=== PATIENT | female | born 1995 | race Hispanic/Latino ===

== ENCOUNTER 2024-11-21 20:28 | Emergency (ER) | payer SELFPAY ==
[~2024-11-21] VITALS: Ht 162.6 cm; Wt 64.4 kg
[~2024-11-21 20:28] MED LIST: PROVENTIL HFA6.7 GM INH
[2024-11-21] MEDS: ALBUTEROL/IPRATROPIUM 3 ML NEB NEB ONE (20:45)
[2024-11-21] MEDS ORDERED: DEXAMETHASONE 10MG/ML PF INJ IM ONE (20:45)
[2024-11-21] MEDS: KETOROLAC TROMETHAMINE 30 MG/ML VIAL IM STA (20:50)
[2024-11-21] MEDS: DEXAMETHASONE SOD PHOS INJ 4 MG/ML SDV IM ONE (20:50)
[2024-11-21] MEDS ORDERED: VENTOLIN HFA18 GM INH (21:34)
[2024-11-21] MEDS ORDERED: MEDROL8 MG PO (21:35)
[2024-11-21] MEDS ORDERED: CORICIDIN HBP1 EAC1 PO (21:37)
[2024-11-21] MEDS ORDERED: AMOXICILLIN500 MG PO (21:41)
[2024-11-21 21:49] VITALS: PULSE 87; RESP 19; TEMP 97.9
[2024-11-21 21:51] VITALS: BP 128/78; PULSE 87; RESP 19; TEMP 97.9; O2SAT 100
== END 2024-11-21 21:54 | disposition home or self-care (01) ==
LOC: FSED 20:32
DX: R06.2 Wheezing (principal); B34.9 Viral infection, unspecified; R05.9 Cough, unspecified; R09.81 Nasal congestion; Z11.52 Encounter for screening for COVID-19
CPT/HCPCS: 0223U; 87400; 96372; 99283; J1100; J1885

== ENCOUNTER 2025-01-11 19:19 | Emergency (ER) | payer SELFPAY ==
[~2025-01-11] VITALS: Ht 162.6 cm; Wt 68.0 kg
[~2025-01-11 19:19] MED LIST changes: +AMOXICILLIN500 MG PO; +CORICIDIN HBP1 EAC1 PO; +MEDROL8 MG PO; +VENTOLIN HFA18 GM INH
[2025-01-11 19:31] VITALS: PULSE 84; RESP 16; TEMP 98.5
[2025-01-11] MEDS: SODIUM CHLORIDE 0.9% 1000ML 1,000 ML IV ONE (20:17)
[2025-01-11] MEDS ORDERED: MACROBID 100 M100 MG PO (20:51)
[2025-01-11 20:59] VITALS: BP 136/82; RESP 18; O2SAT 99
== END 2025-01-11 20:58 | disposition home or self-care (01) ==
LOC: FSED 19:27
DX: R20.2 Paresthesia of skin (principal); R11.10 Vomiting, unspecified; N39.0 Urinary tract infection, site not specified; R51.9 Headache, unspecified; F41.9 Anxiety disorder, unspecified
CPT/HCPCS: 80053; 81003; 81025; 85025; 99283; J7030